=== PATIENT | female | born 2005 | race Caucasian/White ===

== ENCOUNTER 2025-06-11 09:30 | Outpatient (RCR) | payer OTHER, SELFPAY ==
--- NOTE | 2025-04-22 16:40 | OPREHPOC ---
Outpatient Therapy Plan of Care This is a Multidisciplinary Plan of Care that may contain components documented by all disciplines (PT, OT, and ST.) PT Problem 1 PT Problem #1 Knowledge Deficit PT Goal 1 Goal / Goal Update Pt will be independent in HEP Pt will verbalize understanding of diagnosis and prognosis Target Visit 8 PT Problem 2 PT Problem #2 Pain PT Goal 1 Goal / Goal Update Pt will report lowest pain rating at 0/10 to show improvement in overall discomfort Target Visit 8 PT Goal 2 Goal / Goal Update Pt will report greatest pain level at 3/10 or less to improve ADLs and activities Target Visit 16 PT Problem 3 PT Problem #3 Impaired Strength PT Goal 1 Goal / Goal Update Pt will demonstrate TRAM strength of 3+/5 or more for improved lumbar stability. Pt will demonstrate equal glute max strength LLE to RLE Target Visit 8 PT Goal 2 Goal / Goal Update Pt will demonstrate TRAM muscle strength of 4/5 for improved lumbar stability Pt will demonstrate gluteus medius strength bilaterally for improved lumbopelvic stability Target Visit 16 PT Problem 4 PT Problem #4 Impaired Flexibility PT Goal 1 Goal / Goal Update Pt will demonstrate L hamstring flexibility
--- NOTE | 2025-04-22 16:41 | PTOPEVAL1 ---
Assessment and note entered by Mary Kay Kohler, PT Evaluation Information Assessment Status Evaluation Diagnosis s/p ICD-10 Condition Codes (PT) Pain in low back M54.50,Radiculopathy, lumbar region M54.16,Weakness R53.1 Other ICD-10 Condition Codes ( z98.890, M51.26, Stiffness hip joints L>R PT) Onset ~1 year Subjective Information 04/07 discectomy and laminectomy No injury to cause disc bulge. Reports feeling much improved, had been dealing wiht this for a year prior. LLE Still feels a little sore and achy, and leg feels like needs to stretch it. Doesn't feel the nerve pain as much but still feels some muscle pain. Back aches at night but throughout the day is fine . 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 Before bed Tylenol and half a hydrocodone. Reported Pain Level Pain Score 2,3: Self Report Assessment PT Clinical Summary Pt presents two weeks s/p discectomy and laminectomy Left L5-S1. She is known to therapist from prior consult. She reports and demonstrates greatly improved pain in LLE compared to prior to surgery. Evaluation today shows weakness jack gluteus medius, L glute max compared to R, significantly reduced TRAM control and strength, possible leg length discrepancy, decreased hip joint mobility compared to age norms L>R. Pt will benefit from therapy for activation and control of TRAM musculature and lumbopelvic muscle strength to improve lumbar stability, ROM of hip joints to offload lumbar spine, lifting mechanics training, and improve LLE and back discomfort in order to return to PLOF from a year ago. Plan of Care Interventions Electrical Stimulation,Hot Pack/Cold Pack,Manual Therapy,Mechanical Traction,Neuro Re-education, Patient/Caregiver Education,Therapeutic Activities ,Therapeutic Exercise,Self-Care/Home Management, Ultrasound,Other Other Interventions Taping, dry needling PT Services Indicated Yes Treatment Frequency and 2x weekly x 8 weeks Duration These treatments will address the objective and functional deficits as defined above. The patient will be advanced safely and appropriately in order for the patient to progress towards his/her prior level of function. Additional exercises will be introduced and as well as a comprehensive home exercise program upon discharge, if needed, ?to ensure carryover of functional gains achieved in the clinic. This treatment plan has been reviewed and agreement upon by the patient.
--- NOTE | 2025-05-14 16:19 | PTOPPROG ---
Assessment and note entered by Mary Kay Kohler, PT Evaluation Information Assessment Status Progress Diagnosis s/p ICD-10 Condition Codes (PT) Pain in low back M54.50,Radiculopathy, lumbar region M54.16,Weakness R53.1 Other ICD-10 Condition Codes ( z98.890, M51.26, Stiffness hip joints L>R PT) Onset ~1 year Subjective Information Self-perceived improvement 70% Went to surgeon and lifting restrictions, stated to be careful. States was able to lift 10 lbs without issue but lifting coin bag at work could feel it after the fact. Was about a 4/10 was tolerable but felt it and ached from it. Lasted 30-60 minutes. Pt reports soreness in muscles after last session but no pain into leg Is usually more achy in the evenings usually after work and sits down notices it. Sometimes takes ibuprofen or tylenol before bed, no longer needs hydrocodone Assessment PT Clinical Summary Pt has attended therapy consistently s/p laminectomy and discectomy with decompression of spinal cord of lower left lumbar. Pt pain levels have reduced to 0/10 at best rating and continues to be at 4/10 at worst rating however this is much more infrequent. She also no longer requires prescription pain medication, and takes over the counter medication occasionally. She continues to show tight hamstrings and neural tension, though she reports no longer having pain into her left leg. She also shows improvement in her strength of lumbopelvic stabilizers. She still has difficulty with lifting and maintaining pelvic tilt posture in standing to decompress her spine. Will benefit from continued therapy to progress strengthening and teaching lift mechanics to meet patient functional goals without pain. Plan of Care Interventions Electrical Stimulation,Hot Pack/Cold Pack,Manual Therapy,Mechanical Traction,Neuro Re-education, Patient/Caregiver Education,Therapeutic Activities ,Therapeutic Exercise,Self-Care/Home Management, Ultrasound,Other Other Interventions Taping, dry needling PT Services Indicated Yes Treatment Frequency and 1-2x weekly x 8 visits. Duration These treatments will address the objective and functional deficits as defined above. The patient will be advanced safely and appropriately in order for the patient to progress towards his/her prior level of function. Additional exercises will be introduced and as well as a comprehensive home exercise program upon discharge, if needed, ?to ensure carryover of functional gains achieved in the clinic. This treatment plan has been reviewed and agreement upon by the patient.
--- NOTE | 2025-05-14 16:19 | OPREHPOC ---
Outpatient Therapy Plan of Care This is a Multidisciplinary Plan of Care that may contain components documented by all disciplines (PT, OT, and ST.) PT Problem 1 PT Problem #1 Knowledge Deficit PT Goal 1 Goal / Goal Update Pt will be independent in HEP Pt will verbalize understanding of diagnosis and prognosis Target Visit 8 Progress Met PT Problem 2 PT Problem #2 Pain PT Goal 1 Goal / Goal Update Pt will report lowest pain rating at 0/10 to show improvement in overall discomfort Target Visit 8 Progress Met PT Goal 2 Goal / Goal Update Pt will report greatest pain level at 3/10 or less to improve ADLs and activities - progressed to 4/ 10 Target Visit 16 Progress Partially Met PT Problem 3 PT Problem #3 Impaired Strength PT Goal 1 Goal / Goal Update Pt will demonstrate TRAM strength of 3+/5 or more for improved lumbar stability. - met Pt will demonstrate equal glute max strength LLE to RLE Target Visit 8 Progress Partially Met PT Goal 2 Goal / Goal Update Pt will demonstrate TRAM muscle strength of 4/5 for improved lumbar stability Pt will demonstrate gluteus medius strength bilaterally for improved lumbopelvic stability Target Visit 16 PT Problem 4 PT Problem #4 Impaired Flexibility PT Goal 1 Goal / Goal Update Pt will demonstrate L hamstring flexibility equal to right hamstring flexibility Target Visit 16
--- NOTE | 2025-06-11 10:24 | PTOPPROG ---
Assessment and note entered by Mary Kay Kohler, PT Evaluation Information Assessment Status Progress Diagnosis s/p L5-S1 discectomy/laiminectomy ICD-10 Condition Codes (PT) Pain in low back M54.50,Radiculopathy, lumbar region M54.16,Weakness R53.1 Other ICD-10 Condition Codes ( z98.890, M51.26, Stiffness hip joints L>R PT) Onset ~1 year Subjective Information Reports cramping in calf is less often and less intense, is improved Feels 80-85% improved overall. Last 15-20% still the cramping in the calf, and also at work if standing too long leg will ache, and sitting too long back will ache. Will take Tylenol or Ibuprofen occasionally once daily 2-3x weekly. Resolved achiness in the back, improves the leg achiness as well. Evenings are doing better, now is just throughout the day at work. Lifted a coin bad yesterday and did much better, but still has some muscle fatigue and achiness together. Discomfort gone within 5 minutes Surgical follow up Jun 25 Assessment PT Clinical Summary Pt has attended therapy consistently for 16 visits s/p L5-S1 laminectomy/discectomy (L). She reports feeling 80-85% improved overall, cont to have some mild aching in the LLE with standing long periods and aching in the lumbar with sitting long periods. OTC medication 2-3x weekly x 1 she reports improves the discomfort. Also has gastroc cramping at times though she reports this is improving as well. She shows great improvement in her core stability and hamstring strength. Appears her discomfort posterior knee with SLR testing is hamstring related as her RLE is the same as the left. She has been thoroughly educated on and performed in clinic appropriate lift techniques, postural alignment in standing and sitting, and appropriate muscle activation patterns. She does continue to show weak gluteals especially for her age group. She has met all her goals save the gluteal strength goal. Pending MD opinion, pt appears to be ready to discharge from therapy. She has a f/u in two weeks and will assess at that time continuation of therapy for high level activities and assist in returning to fitness regiment. Plan of Care Interventions Electrical Stimulation,Hot Pack/Cold Pack,Manual Therapy,Mechanical Traction,Neuro Re-education, Patient/Caregiver Education,Therapeutic Activities ,Therapeutic Exercise,Self-Care/Home Management, Ultrasound,Other Other Interventions Taping, dry needling PT Services Indicated Yes Treatment Frequency and 1x weekly x 6 visits pending MD opinion at f/u on Duration 06/25/25. These treatments will address the objective and functional deficits as defined above. The patient will be advanced safely and appropriately in order for the patient to progress towards his/her prior level of function. Additional exercises will be introduced and as well as a comprehensive home exercise program upon discharge, if needed, ?to ensure carryover of functional gains achieved in the clinic. This treatment plan has been reviewed and agreement upon by the patient.
--- NOTE | 2025-07-07 09:23 | PTOPDC ---
Assessment and note entered by Mary Kay Kohler, PT Evaluation Information Assessment Status Discharge - Pt Not Present Diagnosis s/p L5-S1 discectomy/laiminectomy ICD-10 Condition Codes (PT) Pain in low back M54.50,Radiculopathy, lumbar region M54.16,Weakness R53.1 Other ICD-10 Condition Codes ( z98.890, M51.26, Stiffness hip joints L>R PT) Onset ~1 year Assessment PT Clinical Summary Since last visit, patient has seen her surgeon and been released from their care. She has made great progress overall with her surgical intervention and formal therapy after this for continued improvement. She was happy with her progress and was educated in continuation of strengthening and maintenance. Thus patient is being discharged from [facility] for completion of therapy plan. Plan of Care PT Services Indicated No
== END 2025-07-07 12:36 | disposition home or self-care (01) ==
LOC: ANHHIPT 09:30
PROVIDERS: PCP Nurse Practitioner Family; Visit Provider Neurological Surgery
DX: M51.26 Other intervertebral disc displacement, lumbar region (principal); Z98.890 Other specified postprocedural states
CPT/HCPCS: 97012; 97014; 97110; 97112; 97140; 97161; 97530; 97750; G0283